=== PATIENT | male | born 1965 | race Caucasian/White ===

== ENCOUNTER 2019-04-13 07:49 | Emergency (ER) | payer SELFPAY ==
[~2019-04-13] VITALS: Ht 188 cm; Wt 161.4 kg
[~2019-04-13 07:49] MED LIST: ADLT ASA LOW81 MG PO; AMPICILLIN500 MG PO; AUGMENTIN875TAB PO; BIAXIN500 MG PO; GLUCOPHAGE500 MG PO; PREVACID30 M2 PO; ZESTRIL/PRIN5 MG/TA1 PO; ZITHROMAX500 MG PO
[2019-04-13 08:20] LABS: HEMATOCRIT 41.6 % (39.0-50.0); HEMOGLOBIN 13.9 g/dl (14.0-18.0); IMMATURE GRANULOCYTES 0.5 % (0.0-5.0); MEAN CELL VOLUME 85.2 fL CALC (80.0-100.0); MEAN CORPUSCULAR HGB 28.5 pG CALC (26.0-32.0); MEAN CORPUSCULAR HGB CONC 33.4 g/L CALC (32.0-36.0); NEUT# 6.87 thou/uL (1.82-7.42); RED BLOOD COUNT 4.88 mill/uL (4.70-6.10); RED CELL DISTRI WIDTH 13.3 % (11.5-15.5)
[2019-04-13 08:39] LABS: ANION GAP 17 (6-22 (CALC)); BUN 19 mg/dL (9-20); BUN/CREATININE RATIO 24 (12-20 (CALC)); CARBON DIOXIDE 27 mmol/l (22-30); CHLORIDE 99 mmol/l (95-108); CREATININE 0.8 mg/dL (0.7-1.3); GFR > 60 ML/MIN (>=60 (CALC)); GFR FOR AFR.AMER. > 60 ML/MIN (>=60 (CALC)); SODIUM 139 mmol/l (137-146)
[2019-04-13] MEDS ORDERED: AMOX/K CLAV875 M1 PO (09:05)
[2019-04-13] MEDS ORDERED: BACTRIM DS1 TAB PO (09:05)
[2019-04-13 09:16] VITALS: BP 169/84
== END 2019-04-13 09:16 | disposition left against medical advice (07) | DRG 558 ==
LOC: ED 07:49
PROVIDERS: Family Medicine
DX: M65.842 Other synovitis and tenosynovitis, left hand (principal); S61.052A Open bite of left thumb without damage to nail, initial encounter; W54.0XXA Bitten by dog, initial encounter; Y92.009 Unspecified place in unspecified non-institutional (private) residence as the place of occurrence of the external cause; Z91.19 Patient's noncompliance with other medical treatment and regimen

== ENCOUNTER 2019-04-13 14:03 | Emergency (ER) | payer SELFPAY ==
[~2019-04-13] VITALS: Ht 188 cm; Wt 161.3 kg
[~2019-04-13 14:03] MED LIST changes: +AMOX/K CLAV875 M1 PO; +BACTRIM DS1 TAB PO
[2019-04-13 15:19] VITALS: BP 138/75
== END 2019-04-13 15:32 | DRG 603 ==
LOC: ED 14:03
DX: L02.512 Cutaneous abscess of left hand (principal); L03.012 Cellulitis of left finger; S61.052A Open bite of left thumb without damage to nail, initial encounter; E11.9 Type 2 diabetes mellitus without complications; W54.0XXA Bitten by dog, initial encounter

== ENCOUNTER 2019-10-12 21:31 | Observation (INO) | payer SELFPAY ==
[~2019-10-12] VITALS: Ht 188 cm; Wt 171.2 kg
--- NOTE | 2019-10-12 21:31 | NUR ---
PT TO ROOM W/STEADY GAIT ACCUCHECK 404
[2019-10-12 22:18] LABS: HEMATOCRIT 40.6 % (39.0-50.0); HEMOGLOBIN 13.3 g/dl (14.0-18.0); IMMATURE GRANULOCYTES 0.8 % (0.0-5.0); MEAN CELL VOLUME 86.6 fL CALC (80.0-100.0); MEAN CORPUSCULAR HGB 28.4 pG CALC (26.0-32.0); MEAN CORPUSCULAR HGB CONC 32.8 g/L CALC (32.0-36.0); NEUT# 4.22 thou/uL (1.82-7.42); RED BLOOD COUNT 4.69 mill/uL (4.70-6.10); RED CELL DISTRI WIDTH 13.4 % (11.5-15.5)
[2019-10-12 22:38] LABS: PROTHROMBIN TIME 10.4 SECONDS (9.0-12.5)
[2019-10-12 22:47] LABS: ALBUMIN 3.7 g/dL (3.2-5.0); ALKALINE PHOSPHATASE 109 u/l (38-126); ANION GAP 13 (6-22 (CALC)); BUN 15 mg/dL (9-20); BUN/CREATININE RATIO 22 (12-20 (CALC)); CARBON DIOXIDE 27 mmol/l (22-30); CHLORIDE 98 mmol/l (95-108); CREATININE 0.7 mg/dL (0.7-1.3); GFR > 60 ML/MIN (>=60 (CALC)); GFR FOR AFR.AMER. > 60 ML/MIN (>=60 (CALC)); SGOT/AST 24 u/l (17-59); SODIUM 134 mmol/l (137-146); TOTAL PROTEIN 6.6 g/dL (6.3-8.2)
[2019-10-12 22:49] LABS: BILIRUBIN, TOTAL 0.4 mg/dL (0.0-1.4)
--- NOTE | 2019-10-12 22:58 | NUR ---
PT A&OX3/MAEW/SPEECH CLEAR. ADVISED OF WAIT TIME FOR TESTS.
[2019-10-12 22:59] LABS: MYOGLOBIN 36 ng/mL (0 - 121)
[2019-10-12 23:15] LABS: URINE BILIRUBIN - DIPSTICK NEGATIVE (NEGATIVE); URINE BLOOD DIPSTICK NEGATIVE (NEGATIVE); URINE COLOR YELLOW; URINE GLUCOSE - DIPSTICK >=1000 mg/dL (NEGATIVE); URINE KETONE NEGATIVE (NEGATIVE); URINE LEUK ESTERASE NEGATIVE (NEGATIVE); URINE NITRITE - DIPSTICK NEGATIVE (Negative); URINE PROTEIN - DIPSTICK NEGATIVE (NEG-TRACE); URINE UROBILINOGEN - DIPSTICK 0.2 E.U./dL (0.2)
[2019-10-12 23:20] LABS: COCAINE NEGATIVE (NEGATIVE)
[2019-10-12 23:21] LABS: BARBITURATES NEGATIVE (NEGATIVE); METHADONE NEGATIVE (NEGATIVE); OXCYCODONE NEGATIVE (NEGATIVE); TETRAHYDROCANNABIONOL POSITIVE (NEGATIVE); TRICYLIC ANTIDEPRESSANTS NEGATIVE (NEGATIVE)
--- NOTE | 2019-10-12 23:44 | NUR ---
FACIAL DROOP IMPROVED TONGUE MORE MIDLINE
[2019-10-13] VITALS (8 sets, daily range): BP systolic 140–189; BP diastolic 70–107
--- NOTE | 2019-10-13 01:14 | NUR ---
Admission Note Report Given to: CESILIA MOILNA Transported by: Wheelchair X Stretcher Transported with: X Nurse Transporter X Patent IV O2 X Mine Shifter Location: ICU X MS2
--- NOTE | 2019-10-13 01:22 | NUR ---
PT ARRIVED TO FLOOR VIA STRETCHER ACCOMPAINED BY ER STAFF. PT ALERT AND ORIENTED X3. DENIES ANY PAIN OR DISCOMFORT. NO APPARENT DISTRESS NOTED. IV SITE APPEARS HEALTHY. RIGHT SIDE FACIAL DROOP NOTED. PT DENIES ANY OTHER SYMPTOMS. PT AMBULATED WITH STEADY GAIT. BRINGING HOME CPAP MACHINE. DISCUSSEC POC AND SAFETY PRECAUTIONS. PT VERBALIZED UNDERSTANDING. ORIENTED TO ROOM AND CALL LIGHT SYSTEM. ICE WATER PROVIDED. CALL LIGHT WITHIN REACH. WILL CONTINUE TO MONITOR.
[2019-10-13 05:30] LABS: ALBUMIN 3.6 g/dL (3.2-5.0); ALKALINE PHOSPHATASE 103 u/l (38-126); ANION GAP 12 (6-22 (CALC)); BILIRUBIN, TOTAL 0.4 mg/dL (0.0-1.4); BUN 14 mg/dL (9-20); BUN/CREATININE RATIO 24 (12-20 (CALC)); CARBON DIOXIDE 29 mmol/l (22-30); CHLORIDE 98 mmol/l (95-108); CREATININE 0.6 mg/dL (0.7-1.3); GFR > 60 ML/MIN (>=60 (CALC)); GFR FOR AFR.AMER. > 60 ML/MIN (>=60 (CALC)); POTASSIUM 4.5 mmol/l (3.5-5.1); SGOT/AST 27 u/l (17-59); SODIUM 134 mmol/l (137-146); TOTAL PROTEIN 6.6 g/dL (6.3-8.2)
[2019-10-13 05:34] LABS: HEMATOCRIT 41.2 % (39.0-50.0); HEMOGLOBIN 13.1 g/dl (14.0-18.0); IMMATURE GRANULOCYTES 0.8 % (0.0-5.0); MEAN CELL VOLUME 87.1 fL CALC (80.0-100.0); MEAN CORPUSCULAR HGB 27.7 pG CALC (26.0-32.0); MEAN CORPUSCULAR HGB CONC 31.8 g/L CALC (32.0-36.0); NEUT# 4.35 thou/uL (1.82-7.42); RED BLOOD COUNT 4.73 mill/uL (4.70-6.10); RED CELL DISTRI WIDTH 13.2 % (11.5-15.5)
--- NOTE | 2019-10-13 05:48 | NUR ---
BP NOTED TO BE HIGH AGAIN. ER PHYSICIAN NOTIFIED. ORDERS RECEIVED WILL MEDICATED WHEN MED PROFILED.
--- NOTE | 2019-10-13 09:10 | NUR ---
ASSESSMENT IS COMLETED: IV SITE IS FREE FROM REDNESS OR EDEMA. HR IS REG,PULSES ARE STRONG X4, ABD IS SOFT WITH ACTIVE BS. BREATH SOUNDS ARE CLEAR,BILATERALLY. HAS SOME FACIAL DROOPING NOTED ON R SIDE OF THE FACE. TELE MONITOR IN PLACE.
--- NOTE | 2019-10-13 12:30 | NUR ---
PT IS RELAXING IN BED WITH MO DISTRESS NOTED IV SITE IS FREE FROM REDNESS OR EDMEA. FAMILY IN THE ROOM.
[2019-10-13 12:37] LABS: CHOLESTEROL HDL RATIO 5.2 (<4.4 (CALC))
--- NOTE | 2019-10-13 16:29 | NUR ---
PT STATES" HAD A SORE ON HIS LEG AT AGE 7 OR 8 AND WAS INFORMED NOT TO SCRATCH, IT WILL SPREAD". PT DID NOT HAVE TO HAVE MEDICATION FOR IT. WILL CONTINUE TO WAIT FOR THE CULTURES. CONTINEU TO OBSERVE AND MONITOR.
--- NOTE | 2019-10-13 16:30 | NUR ---
PT IS RELAXING AND VISITING WITH FAMILY . NO DISTRESS NOTED. CONITNUE TO OSBERVE AND MONITOR.
--- NOTE | 2019-10-13 17:00 | NUR ---
TELE MONITOR DISCONTINUED CATHETER INTAC.T
--- NOTE | 2019-10-13 20:30 | NUR ---
ASSESMENT COMPLETE. PLAN OF CARE REVIEWED. PT DENIES QUESTIONS AND VERBALIZES UNDERSTANDING. CALL MARTINEZ WITHIN REACH, AGREES TO CALL PRN.
--- NOTE | 2019-10-13 22:07 | NUR ---
ADVISED DR. TOLBERT PTS MANUAL B/P WAS 172/88, HR 82. NO ORDERS AT THIS TIME.
--- NOTE | 2019-10-13 22:07 | NUR ---
PHYSICIAN NOTIFIED OF SUSTAINED ELEVATED BP 172/88,HR82 TAKEN MANUALLY. WILL AWAIT ORDERS.
--- NOTE | 2019-10-13 22:20 | NUR ---
ORDER FOR APRESOLINE IV FOR SBP >170mmHG RECEIVED ELECTRONICALLY FROM DR. TOLBERT.
[2019-10-14 00:05] VITALS: BP 158/70
--- NOTE | 2019-10-14 00:05 | NUR ---
MANUAL B/P 158/70, HR-72bpm, WITHIN PARAMATERS-APRESOLINE NOT GIVEN. WILL CON'T TO MONITOR. PT RESTING COMFORTABLY. S/O AT BEDSIDE, BROUGHT IN "UNSWEETENED TEA" FOR PT. DISCUSSED DIABETIC DIET AND GLUCOSE MONITORING WITH PT AND S/O. CALL MARTINEZ WITHIN REACH, AGREES TO CALL PRN.
[2019-10-14 04:15] VITALS: BP 173/82
--- NOTE | 2019-10-14 04:50 | NUR ---
AM B/P VERIFIED MANUALLY, B/P TO RUE WHILE SUPINE IS 175/110mmHG, PT REMAINS ASYMPOTMATIC. HYDRALAZINE IV PUSH ADMINISTERED OVER ONE MINUTE ORDERED FOR SBP >170mmHG, SEE MAR. WILL F/U. PT DENIES NEEDS AT THIS TIME AND AGREES TO CALL PRN. CALL JUAN SMITH.
[2019-10-14 05:00] VITALS: BP 175/110
[2019-10-14 05:17] LABS: HEMATOCRIT 46.2 % (39.0-50.0); MEAN CELL VOLUME 85.1 fL CALC (80.0-100.0); MEAN CORPUSCULAR HGB CONC 32.9 g/L CALC (32.0-36.0); RED BLOOD COUNT 5.43 mill/uL (4.70-6.10); RED CELL DISTRI WIDTH 13.2 % (11.5-15.5)
[2019-10-14 05:25] LABS: HEMOGLOBIN 15.2 g/dl (14.0-18.0)
[2019-10-14 05:38] LABS: ANION GAP 15 (6-22 (CALC)); BUN 15 mg/dL (9-20); BUN/CREATININE RATIO 26 (12-20 (CALC)); CARBON DIOXIDE 24 mmol/l (22-30); CHLORIDE 99 mmol/l (95-108); CREATININE 0.6 mg/dL (0.7-1.3); GFR > 60 ML/MIN (>=60 (CALC)); GFR FOR AFR.AMER. > 60 ML/MIN (>=60 (CALC)); MAGNESIUM 1.7 mg/dL (1.6-2.3); POTASSIUM 4.2 mmol/l (3.5-5.1); SODIUM 134 mmol/l (137-146)
[2019-10-14 05:52] VITALS: BP 160/100
--- NOTE | 2019-10-14 05:52 | NUR ---
F/U B/P IS 160/100 AFTER HYDRALAZINE ADMIN (SEE MAR), CON'T TO MONITOR. PT REMAINS ASYMPTOMATIC. COMFORTABLE AND IN NO DISTRESS. CALL MARTINEZ REMAINS WITHIN REACH, AGREES TO CALL PRN.
[2019-10-14 08:45] VITALS: BP 170/91
--- NOTE | 2019-10-14 08:45 | NUR ---
ASSESSMENT IS COMPLETED; IV SITE IS FREE FROM REDNESS OR EDEMA.HR IS REG,PULSES ARE STRONG X4, ABD IS SOFT WITH ACTIVE BS. BREATH SOUNDS ARE CLEAR BILATERALLY, FACIAL DROOP ON R SIDE. CONITNUE TO OBSERVE AND MONITOR.
[2019-10-14] MEDS ORDERED: AMARYL1 MG PO (09:00)
[2019-10-14] MEDS ORDERED: LISINOPRIL20 MG PO (09:00)
[2019-10-14] MEDS ORDERED: VALTREX500 MG PO (09:00)
[2019-10-14] MEDS ORDERED: METFORMIN500 MG PO (09:00)
[2019-10-14] MEDS ORDERED: AMLODIPINE BESYL5 MG PO (09:00)
[2019-10-14] MEDS ORDERED: PREDNISONE10 MG PO (09:00)
[2019-10-14] MEDS ORDERED: LIPITOR10 M1 PO (09:04)
[2019-10-14] MEDS ORDERED: ASPIRIN ADULT L81 M2 PO (09:04)
[2019-10-14 09:37] VITALS: BP 170/91
--- NOTE | 2019-10-14 12:12 | NUR ---
DISCHARGE INSTRUCTIONS GIVEN WITH LITERATURE RE: DIABETES AND HTN. IV SITE DISCONTINUED CATHETER INTACT.
--- NOTE | 2019-10-14 12:45 | NUR ---
PT RECIEVED DISCHARGE INSTRUCTIONS VERBALIZED UNDERSTANDING. IV SITE DISCONITNUED CATHETER INTACT. GAVE LITERATURE ON DIABETES. ALSO INFORMED HIS TO CALL MARC HARTMAN [employer] DIPPER RE: MORE INFORMATION. Discharge instructions given. Patient verbalizes understanding of same. Discharged in stable condition via Ambulatory to Home with family. All belongings sent with pt.
== END 2019-10-14 12:15 | disposition home or self-care (01) | DRG 74 ==
LOC: ED 21:31 → ED-I 10-13 00:09 → ED 10-13 00:37 → MS2 10-13 00:38
PROVIDERS: Emergency Medicine; Nurse Practitioner Family; ADMIT Internal Medicine; ATTEND Internal Medicine
DX: G51.0 Bell's palsy (principal); Z68.42 Body mass index [BMI] 45.0-49.9, adult; I16.0 Hypertensive urgency; I10 Essential (primary) hypertension; E11.65 Type 2 diabetes mellitus with hyperglycemia; G47.33 Obstructive sleep apnea (adult) (pediatric); E78.5 Hyperlipidemia, unspecified; E66.01 Morbid (severe) obesity due to excess calories; T50.916A Underdosing of multiple unspecified drugs, medicaments and biological substances, initial encounter; Z91.128 Patient's intentional underdosing of medication regimen for other reason
CPT/HCPCS: G0378

== ENCOUNTER 2019-10-29 | Emergency (ER) | payer SELFPAY ==
[~2019-10-29] MED LIST changes: +AMARYL1 MG PO; +AMLODIPINE BESYL5 MG PO; +ASPIRIN ADULT L81 M2 PO; +LIPITOR10 M1 PO; +LISINOPRIL20 MG PO; +METFORMIN500 MG PO; +PREDNISONE10 MG PO; +VALTREX500 MG PO
--- NOTE | 2019-10-30 00:32 | NUR ---
BREATHING TREATMENT GIVEN BACK TO BACK.
[2019-10-30 00:58] LABS: HEMATOCRIT 47.4 % (39.0-50.0); HEMOGLOBIN 15.9 g/dl (14.0-18.0); IMMATURE GRANULOCYTES 1.1 % (0.0-5.0); MEAN CELL VOLUME 85.7 fL CALC (80.0-100.0); MEAN CORPUSCULAR HGB 28.8 pG CALC (26.0-32.0); MEAN CORPUSCULAR HGB CONC 33.5 g/L CALC (32.0-36.0); NEUT# 6.01 thou/uL (1.82-7.42); RED BLOOD COUNT 5.53 mill/uL (4.70-6.10); RED CELL DISTRI WIDTH 14.6 % (11.5-15.5)
[2019-10-30] MEDS ORDERED: PREDNISONE50 MG PO (01:34)
[2019-10-30] MEDS ORDERED: VENTOLIN HFA IN (01:34)
[2019-10-30] MEDS ORDERED: TESSALON PER100 MG PO (01:34)
[2019-10-30] MEDS ORDERED: OMEPRAZOLE20 M2 PO (23:30)
== END 2019-10-30 01:45 | disposition home or self-care (01) | DRG 203 ==
PROVIDERS: Family Medicine
DX: J40 Bronchitis, not specified as acute or chronic (principal); I10 Essential (primary) hypertension; E11.9 Type 2 diabetes mellitus without complications; E03.9 Hypothyroidism, unspecified; Z79.84 Long term (current) use of oral hypoglycemic drugs

== ENCOUNTER 2019-10-30 | Emergency (ER) | payer SELFPAY ==
[2019-10-30] MEDS ORDERED: VENTOLIN HFA IN (01:34)
[2019-10-30] MEDS ORDERED: PREDNISONE50 MG PO (01:34)
[2019-10-30] MEDS ORDERED: TESSALON PER100 MG PO (01:34)
[2019-10-30 20:51] LABS: URINE BILIRUBIN - DIPSTICK NEGATIVE (NEGATIVE); URINE BLOOD DIPSTICK TRACE-INTACT (NEGATIVE); URINE GLUCOSE - DIPSTICK 500 mg/dL (NEGATIVE); URINE KETONE 15 mg/dL (NEGATIVE); URINE LEUK ESTERASE NEGATIVE (NEGATIVE); URINE NITRITE - DIPSTICK NEGATIVE (Negative); URINE PROTEIN - DIPSTICK 100 mg/dL (NEG-TRACE); URINE SPECIFIC GRAVITY >=1.030
[2019-10-30 20:53] LABS: HEMATOCRIT 44.6 % (39.0-50.0); HEMOGLOBIN 15.1 g/dl (14.0-18.0); IMMATURE GRANULOCYTES 0.6 % (0.0-5.0); MEAN CELL VOLUME 84.3 fL CALC (80.0-100.0); MEAN CORPUSCULAR HGB 28.5 pG CALC (26.0-32.0); MEAN CORPUSCULAR HGB CONC 33.9 g/L CALC (32.0-36.0); NEUT# 7.29 thou/uL (1.82-7.42); RED BLOOD COUNT 5.29 mill/uL (4.70-6.10); RED CELL DISTRI WIDTH 14.4 % (11.5-15.5)
[2019-10-30 21:00] LABS: URINE COLOR DK. YELLOW
[2019-10-30 21:01] LABS: URINE RBC 0-2 RBC/hpf (0-5); URINE WBC 0-2 WBC/hpf (0-5)
[2019-10-30 21:14] LABS: ALKALINE PHOSPHATASE 67 u/l (38-126); AMYLASE 75 u/l (30-110); ANION GAP 19 (6-22 (CALC)); BUN 15 mg/dL (9-20); BUN/CREATININE RATIO 30 (12-20 (CALC)); CARBON DIOXIDE 23 mmol/l (22-30); CHLORIDE 96 mmol/l (95-108); CREATININE 0.5 mg/dL (0.7-1.3); GFR > 60 ML/MIN (>=60 (CALC)); GFR FOR AFR.AMER. > 60 ML/MIN (>=60 (CALC)); LIPASE 537 u/l (23-300); POTASSIUM 4.4 mmol/l (3.5-5.1); SGOT/AST 33 u/l (17-59); SODIUM 133 mmol/l (137-146); TOTAL PROTEIN 7.7 g/dL (6.3-8.2)
[2019-10-30 21:16] LABS: ALBUMIN 4.5 g/dL (3.2-5.0); BILIRUBIN, TOTAL 1.1 mg/dL (0.0-1.4)
[2019-10-30] MEDS ORDERED: OMEPRAZOLE20 M2 PO (23:30)
== END 2019-10-30 23:46 | disposition home or self-care (01) | DRG 440 ==
PROVIDERS: Family Medicine
DX: K85.90 Acute pancreatitis without necrosis or infection, unspecified (principal); I10 Essential (primary) hypertension; E03.9 Hypothyroidism, unspecified; E11.9 Type 2 diabetes mellitus without complications; Z79.84 Long term (current) use of oral hypoglycemic drugs
CPT/HCPCS: Q9967; S0164

== ENCOUNTER 2022-09-20 06:42 | Observation (INO) | payer SELFPAY ==
[~2022-09-20] VITALS: Ht 188 cm; Wt 155.0 kg
[~2022-09-20 06:42] MED LIST changes: +OMEPRAZOLE20 M2 PO; +PREDNISONE50 MG PO; +TESSALON PER100 MG PO; +VENTOLIN HFA IN
[2022-09-20] MEDS ORDERED: METFORMIN HCL500 M1 PO (08:17)
[2022-09-20] MEDS ORDERED: JARDIANCE10 MG PO (08:18)
[2022-09-20] MEDS ORDERED: OZEMPIC4 MG SC (08:19)
[2022-09-20 08:38] LABS: BASO% 0.8 % (0-3); EOS% 1.9 % (0-8); HEMATOCRIT 41.5 % (39.0-50.0); HEMOGLOBIN 14.1 g/dl (14.0-18.0); IMMATURE GRANULOCYTES 0.6 % (0.0-5.0); LYMPH% 14.7 % (15-41); MEAN CELL VOLUME 88.1 fL CALC (80.0-100.0); MEAN CORPUSCULAR HGB 29.9 pG CALC (26.0-32.0); MONO% 11.2 % (2-13); NEUT# 3.75 thou/uL (1.82-7.42); NEUT% 70.8 % (42-76); RED BLOOD COUNT 4.71 mill/uL (4.70-6.10); RED CELL DISTRI WIDTH 13.6 % (11.5-15.5)
[2022-09-20 08:46] LABS: ALBUMIN 4.4 g/dL (3.2-5.0); ALKALINE PHOSPHATASE 67 u/l (38-126); BILIRUBIN, TOTAL 0.9 mg/dL (0.0-1.4); BUN 11 mg/dL (9-20); BUN/CREATININE RATIO 18 (12-20 (CALC)); CHLORIDE 101 mmol/l (95-108); CREATININE 0.6 mg/dL (0.7-1.3); GFR FOR AFR.AMER. > 60 ML/MIN (>=60 (CALC)); GFR OTHER RACES > 60 ML/MIN (>=60 (CALC)); POTASSIUM 3.9 mmol/l (3.5-5.1); SGOT/AST 39 u/l (17-59); SODIUM 137 mmol/l (137-146); TOTAL PROTEIN 7.8 g/dL (6.3-8.2)
[2022-09-20 08:52] LABS: ANION GAP 10 (6-22 (CALC)); CARBON DIOXIDE 30 mmol/l (22-30)
[2022-09-20 15:43] VITALS: BP 132/73
[2022-09-20 19:01] VITALS: BP 179/88
[2022-09-20 21:43] VITALS: BP 161/83
[2022-09-21] VITALS (14 sets, daily range): BP systolic 140–204; BP diastolic 56–108
[2022-09-21 06:06] LABS: BASO% 0.4 % (0-3); HEMOGLOBIN 14.1 g/dl (14.0-18.0); IMMATURE GRANULOCYTES 0.4 % (0.0-5.0); LYMPH% 13.6 % (15-41); MEAN CELL VOLUME 87.6 fL CALC (80.0-100.0); MEAN CORPUSCULAR HGB 30.1 pG CALC (26.0-32.0); MEAN CORPUSCULAR HGB CONC 34.4 g/dL CAL (32.0-36.0); MONO% 6.8 % (2-13); NEUT# 3.82 thou/uL (1.82-7.42); NEUT% 78.8 % (42-76); RED BLOOD COUNT 4.68 mill/uL (4.70-6.10); RED CELL DISTRI WIDTH 13.3 % (11.5-15.5)
[2022-09-21 06:21] LABS: ALBUMIN 4.2 g/dL (3.2-5.0); ALKALINE PHOSPHATASE 69 u/l (38-126); ANION GAP 12 (6-22 (CALC)); BUN 14 mg/dL (9-20); BUN/CREATININE RATIO 25 (12-20 (CALC)); CARBON DIOXIDE 29 mmol/l (22-30); CHLORIDE 102 mmol/l (95-108); CREATININE 0.5 mg/dL (0.7-1.3); GFR FOR AFR.AMER. > 60 ML/MIN (>=60 (CALC)); GFR OTHER RACES > 60 ML/MIN (>=60 (CALC)); POTASSIUM 4.1 mmol/l (3.5-5.1); SGOT/AST 34 u/l (17-59); SODIUM 139 mmol/l (137-146); TOTAL PROTEIN 7.6 g/dL (6.3-8.2)
[2022-09-21 06:34] LABS: BILIRUBIN, TOTAL 0.5 mg/dL (0.0-1.4)
[2022-09-22] VITALS (10 sets, daily range): BP systolic 152–184; BP diastolic 76–104
[2022-09-22 05:54] LABS: BASO% 0.1 % (0-3); HEMATOCRIT 41.9 % (39.0-50.0); HEMOGLOBIN 14.3 g/dl (14.0-18.0); IMMATURE GRANULOCYTES 0.4 % (0.0-5.0); LYMPH% 10.9 % (15-41); MEAN CELL VOLUME 87.7 fL CALC (80.0-100.0); MEAN CORPUSCULAR HGB 29.9 pG CALC (26.0-32.0); MEAN CORPUSCULAR HGB CONC 34.1 g/dL CAL (32.0-36.0); MONO% 4.4 % (2-13); NEUT# 7.09 thou/uL (1.82-7.42); NEUT% 84.2 % (42-76); RED BLOOD COUNT 4.78 mill/uL (4.70-6.10); RED CELL DISTRI WIDTH 13.6 % (11.5-15.5)
[2022-09-22 06:22] LABS: ALBUMIN 4.1 g/dL (3.2-5.0); ALKALINE PHOSPHATASE 64 u/l (38-126); ANION GAP 12 (6-22 (CALC)); BILIRUBIN, TOTAL 0.4 mg/dL (0.0-1.4); BUN 15 mg/dL (9-20); BUN/CREATININE RATIO 26 (12-20 (CALC)); CARBON DIOXIDE 26 mmol/l (22-30); CHLORIDE 102 mmol/l (95-108); CREATININE 0.6 mg/dL (0.7-1.3); GFR FOR AFR.AMER. > 60 ML/MIN (>=60 (CALC)); GFR OTHER RACES > 60 ML/MIN (>=60 (CALC)); POTASSIUM 4.2 mmol/l (3.5-5.1); SGOT/AST 30 u/l (17-59); SODIUM 135 mmol/l (137-146); TOTAL PROTEIN 7.2 g/dL (6.3-8.2)
[2022-09-23 04:00] VITALS: BP 174/103
[2022-09-23 04:22] VITALS: BP 174/103
[2022-09-23 05:26] LABS: HEMATOCRIT 42.7 % (39.0-50.0); HEMOGLOBIN 14.6 g/dl (14.0-18.0); IMMATURE GRANULOCYTES 0.4 % (0.0-5.0); LYMPH% 9.9 % (15-41); MEAN CELL VOLUME 88.2 fL CALC (80.0-100.0); MEAN CORPUSCULAR HGB 30.2 pG CALC (26.0-32.0); MEAN CORPUSCULAR HGB CONC 34.2 g/dL CAL (32.0-36.0); MONO% 3.7 % (2-13); NEUT# 8.29 thou/uL (1.82-7.42); RED BLOOD COUNT 4.84 mill/uL (4.70-6.10); RED CELL DISTRI WIDTH 13.6 % (11.5-15.5)
[2022-09-23 06:40] VITALS: BP 150/71
[2022-09-23 07:00] LABS: ALBUMIN 4.1 g/dL (3.2-5.0); ALKALINE PHOSPHATASE 63 u/l (38-126); ANION GAP 11 (6-22 (CALC)); BILIRUBIN, TOTAL 0.5 mg/dL (0.0-1.4); BUN 21 mg/dL (9-20); BUN/CREATININE RATIO 35 (12-20 (CALC)); CARBON DIOXIDE 26 mmol/l (22-30); CHLORIDE 101 mmol/l (95-108); CREATININE 0.6 mg/dL (0.7-1.3); GFR FOR AFR.AMER. > 60 ML/MIN (>=60 (CALC)); GFR OTHER RACES > 60 ML/MIN (>=60 (CALC)); POTASSIUM 4.3 mmol/l (3.5-5.1); SGOT/AST 29 u/l (17-59); SODIUM 133 mmol/l (137-146)
[2022-09-23 10:35] VITALS: BP 159/87
[2022-09-23] MEDS ORDERED: PREDNISONE10 MG PO (14:22)
[2022-09-23 14:40] VITALS: BP 183/95
[2022-09-23 15:55] VITALS: BP 168/54
== END 2022-09-23 16:35 | disposition home or self-care (01) | DRG 193 ==
LOC: ED 06:42 → ED-I 09:50 → ED 10:23 → MS2 10:24
PROVIDERS: Family Medicine; Nurse Practitioner Family; ADMIT Internal Medicine; ATTEND Internal Medicine
DX: J18.9 Pneumonia, unspecified organism (principal); Z68.42 Body mass index [BMI] 45.0-49.9, adult; E11.9 Type 2 diabetes mellitus without complications; I50.33 Acute on chronic diastolic (congestive) heart failure; I11.0 Hypertensive heart disease with heart failure; E03.9 Hypothyroidism, unspecified; G47.33 Obstructive sleep apnea (adult) (pediatric); E66.01 Morbid (severe) obesity due to excess calories; E78.5 Hyperlipidemia, unspecified; Z79.84 Long term (current) use of oral hypoglycemic drugs; Z20.822 Contact with and (suspected) exposure to COVID-19
CPT/HCPCS: G0378; J1650

== ENCOUNTER 2022-12-25 20:25 | Emergency (ER) | payer SELFPAY ==
[~2022-12-25] VITALS: Ht 188 cm; Wt 159.0 kg
[~2022-12-25 20:25] MED LIST changes: +JARDIANCE10 MG PO; +METFORMIN HCL500 M1 PO; +OZEMPIC4 MG SC
[2022-12-26 00:16] LABS: BASO% 0.7 % (0-3); EOS% 2.9 % (0-8); HEMATOCRIT 41.9 % (39.0-50.0); HEMOGLOBIN 13.3 g/dl (14.0-18.0); LYMPH% 17.6 % (15-41); MEAN CELL VOLUME 89.1 fL CALC (80.0-100.0); MEAN CORPUSCULAR HGB 28.3 pG CALC (26.0-32.0); MEAN CORPUSCULAR HGB CONC 31.7 g/dL CAL (32.0-36.0); MONO% 7.8 % (2-13); NEUT# 6.11 thou/uL (1.82-7.42); RED BLOOD COUNT 4.7 mill/uL (4.70-6.10); RED CELL DISTRI WIDTH 13.9 % (11.5-15.5)
[2022-12-26 00:33] LABS: ALBUMIN 4.2 g/dL (3.2-5.0); ALKALINE PHOSPHATASE 71 u/l (38-126); ANION GAP 11 (6-22 (CALC)); BILIRUBIN, TOTAL 0.4 mg/dL (0.2-1.3); BUN 20 mg/dL (9-20); BUN/CREATININE RATIO 26 (12-20 (CALC)); CARBON DIOXIDE 28 mmol/l (22-30); CHLORIDE 105 mmol/l (95-108); CREATININE 0.8 mg/dL (0.7-1.3); GFR FOR AFR.AMER. > 60 ML/MIN (>=60 (CALC)); GFR OTHER RACES > 60 ML/MIN (>=60 (CALC)); SGOT/AST 24 u/l (17-59); SODIUM 139 mmol/l (137-146)
[2022-12-26] MEDS ORDERED: KEFLEX500 MG PO (01:19)
[2022-12-26 01:43] VITALS: BP 143/89
== END 2022-12-26 01:55 | disposition home or self-care (01) | DRG 605 ==
LOC: ED 20:25
PROVIDERS: Emergency Medicine
DX: S81.831A Puncture wound without foreign body, right lower leg, initial encounter (principal); L08.9 Local infection of the skin and subcutaneous tissue, unspecified; X58.XXXA Exposure to other specified factors, initial encounter; I10 Essential (primary) hypertension; E11.9 Type 2 diabetes mellitus without complications; E03.9 Hypothyroidism, unspecified; Z79.84 Long term (current) use of oral hypoglycemic drugs

== ENCOUNTER 2024-04-24 22:01 | Emergency (ER) | payer OTHER ==
[~2024-04-24] VITALS: Ht 188 cm; Wt 147.4 kg
[~2024-04-24 22:01] MED LIST changes: +KEFLEX500 MG PO
[2024-04-24] MEDS ORDERED: SODIUM CHLORIDE 0.9% 1,000 ML IV ONE (22:30)
[2024-04-24] MEDS ORDERED: ASPIRIN 81 MG/TAB PO ONE (22:30)
[2024-04-24 22:57] VITALS: BP 138/89
[2024-04-24 23:01] VITALS: BP 138/83
[2024-04-24 23:07] LABS: BASO% 0.5 % (0-3); EOS% 2.3 % (0-8); HEMATOCRIT 42.3 % (39.0-50.0); HEMOGLOBIN 13.9 g/dl (14.0-18.0); IMMATURE GRANULOCYTES 0.5 % (0.0-5.0); LYMPH% 17.8 % (15-41); MEAN CELL VOLUME 88.5 fL CALC (80.0-100.0); MEAN CORPUSCULAR HGB 29.1 pG CALC (26.0-32.0); MEAN CORPUSCULAR HGB CONC 32.9 g/dL CAL (32.0-36.0); MONO% 7.5 % (2-13); NEUT# 6.75 thou/uL (1.82-7.42); NEUT% 71.4 % (42-76); RED BLOOD COUNT 4.78 mill/uL (4.70-6.10); RED CELL DISTRI WIDTH 14.1 % (11.5-15.5)
[2024-04-24 23:15] VITALS: BP 139/86
[2024-04-24 23:23] LABS: ALBUMIN 4.5 g/dL (3.2-5.0); BILIRUBIN, TOTAL 0.8 mg/dL (0.2-1.3); MAGNESIUM 1.7 mg/dL (1.6-2.3); POTASSIUM 4.1 mmol/l (3.5-5.1); TOTAL PROTEIN 7.4 g/dL (6.3-8.2)
[2024-04-24 23:30] VITALS: BP 136/86
[2024-04-24 23:54] LABS: TSH, 3RD GENERATION 7.61 uIU/mL (0.47 - 4.68)
[2024-04-25 00:48] VITALS: BP 163/101
== END 2024-04-25 01:00 | disposition home or self-care (01) | DRG 93 ==
LOC: ED 22:01
PROVIDERS: Family Medicine
DX: R47.81 Slurred speech (principal); I10 Essential (primary) hypertension; E11.9 Type 2 diabetes mellitus without complications; E03.9 Hypothyroidism, unspecified; Z79.84 Long term (current) use of oral hypoglycemic drugs; Z79.85 Long-term (current) use of injectable non-insulin antidiabetic drugs